=== PATIENT | female | born 1950 | race Two or more races ===

== ENCOUNTER → 2016-10-08 | Outpatient (CLI) | payer MEDICARE, OTHER ==
[2016-10-08 12:28] LABS: ABSOLUTE BASOPHILS # (AUTO) 0.1 10^3/uL (0.0-0.2); ABSOLUTE EOSINOPHILS # (AUTO) 0.1 10^3/uL (0.0-0.6); ABSOLUTE LYMPHOCYTES (AUTO) 1.2 10^3/uL (0.5-4.7); ABSOLUTE MONOCYTES (AUTO) 0.4 10^3/uL (0.1-1.4); ABSOLUTE NEUT (AUTO) 2.6 10^3/uL (1.7-8.2); BASOPHILS % (AUTO) 1.3 % (0-2); EOSINOPHILS % (AUTO) 1.2 % (0-6); HEMATOCRIT 37.1 % (36.0-47.0); HEMOGLOBIN 12.6 g/dL (12.0-15.5); HGB HCT DIFFERENCE 0.7; LYMPHOCYTES % (AUTO) 28.3 % (13-45); MEAN CORPUSCULAR HEMOGLOBIN 29.7 pg (27.0-33.4); MEAN CORPUSCULAR HGB CONC 33.9 g/dL (32.0-36.0); MEAN CORPUSCULAR VOLUME 88 fl (80-97); RED BLOOD COUNT 4.23 10^6/uL (3.72-5.28); RED CELL DISTRIBUTION WIDTH 13.2 % (11.5-14.0); SEGMENTED NEUTROPHILS % (AUTO) 60.2 % (42-78); WHITE BLOOD COUNT 4.2 10^3/uL (4.0-10.5)
[2016-10-08 12:59] LABS: ALANINE AMINOTRANSFERASE 39 U/L (9-52); ALBUMIN 4.3 g/dL (3.5-5.0); ALKALINE PHOSPHATASE 48 U/L (38-126); ANION GAP 7 (5-19); ASPARTATE AMINO TRANSFERASE 21 U/L (14-36); BILIRUBIN,TOTAL 0.6 mg/dL (0.2-1.3); BLOOD UREA NITROGEN 16 mg/dL (7-20); CALCIUM 9.5 mg/dL (8.4-10.2); CARBON DIOXIDE 29 mmol/L (22-30); CHLORIDE 102 mmol/L (98-107); CHOLESTEROL 285.89 mg/dL (0-200); CREATININE RESULT 0.68 mg/dL (0.52-1.25); Direct HDL 72 mg/dL (>40); GLUCOSE 85 mg/dL (75-110); POTASSIUM 4.4 mmol/L (3.6-5.0); SODIUM 137.8 mmol/L (137-145); TOTAL PROTEIN 6.8 g/dL (6.3-8.2); TRIGLYCERIDES 77 mg/dL (<150)
[2016-10-08 13:11] LABS: DIRECT LDL 170 mg/dL (<100)
== END ==
LOC: OD 11:07
PROVIDERS: ATTEND Internal Medicine
DX: E78.5 Hyperlipidemia, unspecified (principal); Z79.899 Other long term (current) drug therapy; R31.9 Hematuria, unspecified
CPT/HCPCS: 36415; 80053; 80061; 85025

== ENCOUNTER 2016-12-12 08:29 | Observation (INO) | payer MEDICARE, OTHER ==
--- NOTE | 2016-12-06 13:00 | HISTORY AND PHYSICAL E ---
History and Physical NAME: SHAWNA ALDRIDGE : 1950 AGE: 66Y ADMITTED: 12/12/2016 ROOM: HISTORY OF PRESENT ILLNESS: The patient presented with rectal bleeding. She is being admitted for colonoscopy. She had redundant difficulty colonoscopy and she will be done in the OR with anesthesia standby. Recent CT on 01/12/2013 showed benign hepatic cyst. There was calcification abdominal aorta, scoliosis, degenerative changes L5. There was no bowel wall lesion. She does have a very tiny umbilical hernia. REVIEW OF SYSTEMS: CARDIAC: High cholesterol. ENDOCRINE: Negative. GASTROINTESTINAL: History of polyps, history of abdominal pain, history of gastric polyps. ONCOLOGY/HEMATOLOGY: Negative. MUSCULOSKELETAL: The patient does have degenerative disk disease. FAMILY HISTORY: Her father had leukemia. Her mom had diabetes. SOCIAL HISTORY: The patient does not smoke, does not drink. PHYSICAL EXAMINATION: VITAL SIGNS: Blood pressure 90/60, pulse 80, respirations 18, temperature 98. HEAD, EYES, EARS, NOSE AND THROAT: Normal. ABDOMEN: Soft. NEUROLOGICAL: Exam negative. A previous colonoscopy showing small rectal polyp. The patient does have redundant colon. The patient's colonoscopy was difficult. She did have no evidence of malignancy. This was done in 2006. Another colonoscopy was done in 2012. Recent ultrasound 09/13/2016 showed several cysts throughout the right lobe of the liver, measuring 23 mm. Gallbladder, liver, pancreas otherwise normal. CONCLUSIONS: Rectal bleeding. PLAN: Colon exam. The patient is to be done in the OR with anesthesia standby. Admit on 12/12/2016. DICTATING PHYSICIAN: KYLE SUERO M.D. [id number] [id number] Y#: [id number] ID: [id number] JOB#: [id number] ACCT: [id number] cc:MD MARCELINO , KYLE JOHNSON M.D. >
[~2016-12-12 08:29] MED LIST: GLUCAGON,HUMAN RECOMB 1 MG INJ ONE; LIDOCAINE 0.5% INJ-PF (5 MG/ML) 50 ML SDV SUBCUT PRN; LIDOCAINE 2% JELLY 30 ML TUBE ONE; RINGERS SOLUTION,LACTATED 1,000 ML IV PRN
[2016-12-12 09:04] LABS: HEMATOCRIT 39.7 % (36.0-47.0); HEMOGLOBIN 13.7 g/dL (12.0-15.5); HGB HCT DIFFERENCE 1.4; MEAN CORPUSCULAR HEMOGLOBIN 30.2 pg (27.0-33.4); MEAN CORPUSCULAR HGB CONC 34.5 g/dL (32.0-36.0); MEAN CORPUSCULAR VOLUME 87 fl (80-97); RED BLOOD COUNT 4.54 10^6/uL (3.72-5.28); RED CELL DISTRIBUTION WIDTH 12.8 % (11.5-14.0); WHITE BLOOD COUNT 3.8 10^3/uL (4.0-10.5)
[2016-12-12 09:27] LABS: ANION GAP 11 (5-19); BLOOD UREA NITROGEN 12 mg/dL (7-20); CARBON DIOXIDE 29 mmol/L (22-30); CHLORIDE 103 mmol/L (98-107); GLUCOSE 122 mg/dL (75-110); SODIUM 142.8 mmol/L (137-145)
[2016-12-12] MEDS ORDERED: ONDANSETRON HCL INJ/PF 4 MG/2 ML SDV ONE (15:16)
[2016-12-12] MEDS ORDERED: DEXMEDETOMIDINE INJ 80 MCG/20 ML VIAL IV ONE (15:16)
[2016-12-12] MEDS ORDERED: PROPOFOL INJ 200 MG/20 ML VIAL IV ONE (15:16)
[2016-12-12] MEDS ORDERED: LIDOCAINE 2% INJ-PF (20 MG/ML) 10 ML AMPUL ONE (15:16)
[2016-12-12] MEDS ORDERED: GLUCAGON,HUMAN RECOMB 1 MG INJ ONE (16:25)
[2016-12-12] MEDS ORDERED: ONDANSETRON HCL INJ/PF 4 MG/2 ML SDV IV PRN (16:42)
[2016-12-12] MEDS ORDERED: DIPHENHYDRAMINE HCL 50 MG/ML VIAL IV PRN (16:42)
[2016-12-12] MEDS ORDERED: PROMETHAZINE HCL INJ 25 MG/1 ML VIAL IV PRN ×2 (16:42)
[2016-12-12] MEDS ORDERED: RINGERS SOLUTION,LACTATED 500 ML IV ONE (18:00)
[2016-12-12 19:13] LABS: HEMATOCRIT 34.5 % (36.0-47.0); HEMOGLOBIN 11.8 g/dL (12.0-15.5); HGB HCT DIFFERENCE 0.9; MEAN CORPUSCULAR HEMOGLOBIN 30.1 pg (27.0-33.4); MEAN CORPUSCULAR HGB CONC 34.2 g/dL (32.0-36.0); MEAN CORPUSCULAR VOLUME 88 fl (80-97); RED BLOOD COUNT 3.93 10^6/uL (3.72-5.28); WHITE BLOOD COUNT 5.3 10^3/uL (4.0-10.5)
[2016-12-12] MEDS ORDERED: DEXTROSE 5%-1/2 NORMAL SALINE 1,000 ML IV PRN (21:02)
[2016-12-13 07:18] LABS: HEMATOCRIT 33.8 % (36.0-47.0); HEMOGLOBIN 11.6 g/dL (12.0-15.5); MEAN CORPUSCULAR HGB CONC 34.4 g/dL (32.0-36.0); MEAN CORPUSCULAR VOLUME 87 fl (80-97); RED BLOOD COUNT 3.88 10^6/uL (3.72-5.28); WHITE BLOOD COUNT 3.7 10^3/uL (4.0-10.5)
[2016-12-13 08:48] VITALS: BP 104/51
--- NOTE | 2016-12-13 14:46 | DISCHARGE SUMMARY E ---
Discharge Summary NAME: SHAWNA ALDRIDGE : 1950 AGE: 66Y ADMITTED: 12/12/2016 DISCHARGED: 12/12/2016 HOSPITAL COURSE: Patient is 66. Presented with rectal bleeding. She underwent colon today in the OR with anesthesia standby. Patient has redundant colon. I did not see any polyps or malignancy. She does have mild external hemorrhoids. DISCHARGE PLAN: Keep the patient on full liquid diet. Baseline CBC. Hold aspirin and nonsteroidal. Patient to see us in the office in the next few days. Consider age and followup colon in 10 years. Continue the rest of her medications, she is no medication at the present time. She is essentially a healthy young female. Her lab studies. She does have high cholesterol at 285. Repeat CBC on admission: White count 4, hemoglobin 12, hematocrit 37. DIET: Full liquid. ACTIVITIES: Avoid exertion and heavy lifting. Followup office visit in the next few days. DICTATING PHYSICIAN: KYLE SUERO M.D. [id number] [facility]#: [id number] ID: [id number] JOB#: [id number] ACCT: [id number] cc:KYLE SUERO M.D. >
--- NOTE | 2016-12-13 14:46 | OPERATIVE REPORT E ---
Operative Report NAME: SHAWNA ALDRIDGE : 1950 AGE: 66Y DATE OF SURGERY: 12/12/2016 ROOM: 212 PREOPERATIVE DIAGNOSIS: Rectal bleeding. POSTOPERATIVE DIAGNOSES: 1. External hemorrhoids. 2. Redundant colon. PROCEDURE: Colonoscopy. SURGEON: KYLE SUERO M.D. ANESTHESIA: Done in the OR with anesthesia standby. TISSUE REMOVED OR ALTERED: None. DESCRIPTION OF PROCEDURE: Rectal exam shows mild external hemorrhoids and lax anal sphincter. Sigmoid descending colon normal. Transverse colon redundant, normal. Ascending colon normal. Cecum normal. Scope gradually withdrawn from cecum and ascending. There was mild ecchymosis in the mid transverse colon secondary to looping of the scope and there is another ecchymosis in the sigmoid colon. Mucosa looks intact. No bleeding and no laceration, just ecchymosis in the sigmoid colon and mid transverse colon. There were no polyps. I did not see diverticulosis on today's exam. Mild external hemorrhoids. DISCHARGE PLAN: We will do baseline CBC. Maintain the patient on full liquids. Consider age and followup colonoscopy after 10 years. DICTATING PHYSICIAN: KYLE SUERO M.D. [id number] [id number] PHY#: [id number] ID: [id number] JOB#: [id number] ACCT: [id number] cc:KYLE SUERO M.D. >
--- NOTE | 2016-12-18 13:25 | DISCHARGE SUMMARY E ---
Discharge Summary NAME: SHAWNA ALDRIDGE : 1950 AGE: 66Y ADMITTED: 12/12/2016 DISCHARGED: 12/13/2016 HISTORY: The patient is known to me, a 66-year-old female who underwent outpatient colonoscopy on 12/12/2016. In the OR her colonoscopy was difficult. There was some mild ecchymosis in the sigmoid colon and the patient did have slight hypotension and blood pressure systolic in the 95. She was slightly hypotensive. Because of the difficult colonoscopy and anemia, we elected to keep her overnight for observation and we did serial hemoglobin and crit on her. On the morning of 12/13/2016, the patient's blood pressure was much better after overnight hydration. Her hemoglobin stabilized. She is being discharged on a full liquid diet, avoid heavy lifting, avoid aspirin and nonsteroidals. CONCLUSIONS: Diverticulosis. No evidence of polyps. No evidence of bleeding. Mild external hemorrhoids. PLAN: The patient is to see us in the office in the next few days. She was admitted from the outpatient OR on 12/12/2016. She was kept in the second floor medical bed and discharged in the morning of 12/13/2016 to continue full liquid diet and to see us in the office in the next few days. FINAL DIAGNOSES: 1. Diverticulosis. 2. External hemorrhoids. 3. Mild anemia. DICTATING PHYSICIAN: KYLE SUERO M.D. 1209M [id number] PHY#: [id number] ID: [id number] JOB#: [id number] ACCT: [id number] cc:KYLE SUERO M.D. >
== END 2016-12-13 08:35 | disposition home or self-care (01) ==
LOC: OROUT 08:29 → 2N 18:54 → OROUT 19:20
PROVIDERS: ADMIT Specialist; ATTEND Specialist
PROC: 0DJD8ZZ Inspection of Lower Intestinal Tract, Via Natural or Artificial Opening Endoscopic (ICD-10-PCS; principal; 2016-12-12 16:00)
DX: K62.5 Hemorrhage of anus and rectum (principal); K64.4 Residual hemorrhoidal skin tags; Q43.8 Other specified congenital malformations of intestine; K42.9 Umbilical hernia without obstruction or gangrene; E78.00 Pure hypercholesterolemia, unspecified; Z86.010 Personal history of colon polyps; Z80.6 Family history of leukemia
CPT/HCPCS: 45378; 36415 ×2; 85027 ×2; 80048; G0378 ×2; G0379; J1610; J2405; J2704; J3490 ×2; 810

== ENCOUNTER → 2017-12-24 | Outpatient (CLI) | payer MEDICARE, OTHER ==
[2017-12-24 09:53] LABS: ABSOLUTE BASOPHILS # (AUTO) 0.1 10^3/uL (0.0-0.2); ABSOLUTE EOSINOPHILS # (AUTO) 0.1 10^3/uL (0.0-0.6); ABSOLUTE LYMPHOCYTES (AUTO) 0.9 10^3/uL (0.5-4.7); ABSOLUTE MONOCYTES (AUTO) 0.3 10^3/uL (0.1-1.4); ABSOLUTE NEUT (AUTO) 2.4 10^3/uL (1.7-8.2); EOSINOPHILS % (AUTO) 1.6 % (0-6); HEMATOCRIT 38.1 % (36.0-47.0); HEMOGLOBIN 13.1 g/dL (12.0-15.5); MEAN CORPUSCULAR HEMOGLOBIN 29.7 pg (27.0-33.4); MEAN CORPUSCULAR HGB CONC 34.2 g/dL (32.0-36.0); MEAN CORPUSCULAR VOLUME 87 fl (80-97); MONOCYTES % (AUTO) 7.8 % (3-13); PLATELET COUNT 200 10^3/uL (150-450); RED CELL DISTRIBUTION WIDTH 13.2 % (11.5-14.0); SEGMENTED NEUTROPHILS % (AUTO) 63.6 % (42-78); TOTAL CELLS COUNTED % (AUTO) 100 %; WHITE BLOOD COUNT 3.7 10^3/uL (4.0-10.5)
[2017-12-24 10:10] LABS: ALANINE AMINOTRANSFERASE 25 U/L (9-52); ALBUMIN 4.1 g/dL (3.5-5.0); ALKALINE PHOSPHATASE 46 U/L (38-126); ANION GAP 8 (5-19); ASPARTATE AMINO TRANSFERASE 22 U/L (14-36); BILIRUBIN,DIRECT 0.1 mg/dL (0.0-0.4); BILIRUBIN,TOTAL 0.3 mg/dL (0.2-1.3); BLOOD UREA NITROGEN 17 mg/dL (7-20); CALCIUM 9.7 mg/dL (8.4-10.2); CARBON DIOXIDE 31 mmol/L (22-30); CHLORIDE 104 mmol/L (98-107); CHOLESTEROL 293.64 mg/dL (0-200); GLUCOSE 89 mg/dL (75-110); POTASSIUM 4.6 mmol/L (3.6-5.0); SODIUM 143.2 mmol/L (137-145); TOTAL PROTEIN 6.9 g/dL (6.3-8.2); TRIGLYCERIDES 77 mg/dL (<150)
[2017-12-24 10:21] LABS: DIRECT LDL 173 mg/dL (<100)
== END ==
LOC: OD 09:18
PROVIDERS: ATTEND Internal Medicine
DX: E78.00 Pure hypercholesterolemia, unspecified (principal); Z79.899 Other long term (current) drug therapy
CPT/HCPCS: 36415; 80053; 80061; 85025

== ENCOUNTER → 2019-01-21 | Outpatient (CLI) | payer MEDICARE, OTHER ==
[2019-01-21 11:26] LABS: ABSOLUTE BASOPHILS # (AUTO) 0.1 10^3/uL (0.0-0.2); ABSOLUTE EOSINOPHILS # (AUTO) 0.1 10^3/uL (0.0-0.6); ABSOLUTE MONOCYTES (AUTO) 0.3 10^3/uL (0.1-1.4); ABSOLUTE NEUT (AUTO) 2.4 10^3/uL (1.7-8.2); BASOPHILS % (AUTO) 1.7 % (0-2); EOSINOPHILS % (AUTO) 1.7 % (0-6); HEMATOCRIT 37.1 % (36.0-47.0); HEMOGLOBIN 12.6 g/dL (12.0-15.5); LYMPHOCYTES % (AUTO) 26.1 % (13-45); MEAN CORPUSCULAR HEMOGLOBIN 29.5 pg (27.0-33.4); MEAN CORPUSCULAR HGB CONC 33.9 g/dL (32.0-36.0); MEAN CORPUSCULAR VOLUME 87 fl (80-97); MONOCYTES % (AUTO) 8.6 % (3-13); PLATELET COUNT 185 10^3/uL (150-450); RED BLOOD COUNT 4.27 10^6/uL (3.72-5.28); RED CELL DISTRIBUTION WIDTH 13.1 % (11.5-14.0); SEGMENTED NEUTROPHILS % (AUTO) 61.9 % (42-78); TOTAL CELLS COUNTED % (AUTO) 100 %; WHITE BLOOD COUNT 3.9 10^3/uL (4.0-10.5)
[2019-01-21 11:51] LABS: ALANINE AMINOTRANSFERASE 24 U/L (9-52); ALBUMIN 4.2 g/dL (3.5-5.0); ALKALINE PHOSPHATASE 42 U/L (38-126); ANION GAP 8 (5-19); ASPARTATE AMINO TRANSFERASE 22 U/L (14-36); BILIRUBIN,DIRECT 0.1 mg/dL (0.0-0.4); BILIRUBIN,TOTAL 0.6 mg/dL (0.2-1.3); BLOOD UREA NITROGEN 15 mg/dL (7-20); CALCIUM 9.4 mg/dL (8.4-10.2); CARBON DIOXIDE 27 mmol/L (22-30); CHLORIDE 104 mmol/L (98-107); CHOLESTEROL 307.56 mg/dL (0-200); GLUCOSE 83 mg/dL (75-110); POTASSIUM 4.4 mmol/L (3.6-5.0); SODIUM 139.2 mmol/L (137-145); TRIGLYCERIDES 89 mg/dL (<150)
[2019-01-21 12:02] LABS: DIRECT LDL 171 mg/dL (<100)
== END ==
LOC: OD 10:43
PROVIDERS: ATTEND Internal Medicine
DX: E78.00 Pure hypercholesterolemia, unspecified (principal); Z79.899 Other long term (current) drug therapy; N39.0 Urinary tract infection, site not specified
CPT/HCPCS: 36415; 80053; 80061; 85025

== ENCOUNTER → 2019-08-31 | Outpatient (CLI) | payer MEDICARE, OTHER ==
--- NOTE | 2019-08-31 14:26 | XCELERA REPORT ---
[address] [address] Lower Extremity Venous Evaluation Procedure: A bilateral duplex scan of the lower extremity veins was performed. The evaluation included responses to compression and other maneuvers with patient in the supine and standing positions to assess venous insufficiency. Right Sided Venous Evaluation Deep venous system evaluation shows patent veins with no significant reflux identified. Sapheno Femoral junction: no reflux. Greater Saphenous vein, Proximal thigh: reflux: no reflux. Greater Saphenous vein, mid thigh: reflux:no reflux. Greater Saphenous vein, Distal thigh: reflux:no reflux. Greater Saphenous vein, Proximal below knee: reflux: none Greater Saphenous vein, Mid below knee: reflux: none. Greater Saphenous vein, Distal below knee: reflux: no reflux. No significant Perforators identified. Left Sided Venous Evaluation Deep venous system evaluation shows patent veins with no significant reflux identified. Sapheno Femoral junction: no reflux. Greater Saphenous vein, Proximal thigh: reflux: no reflux. Greater Saphenous vein, mid thigh: reflux:no reflux. Greater Saphenous vein, Distal thigh: reflux:no reflux. Greater Saphenous vein, Proximal below knee: reflux: none Greater Saphenous vein, Mid below knee: reflux: none. Greater Saphenous vein, Distal below knee: reflux: no reflux. No significant Perforators identified. Interpretation Summary No duplex evidence of DVT or obstruction in the bilateral lower extremities. No significant deep or superficial reflux identified. Name: SHAWNA ALDRIDGE Age: 69 yrs Gender: Female : 1950 Patient Status: Outpatient Patient Location: Study Date: 08/31/2019 11:19 AM Reason For Study: LEG PAIN Ordering Physician: EAMON BORDEN Performed By: Froylan Domínguez : EAMON BORDEN > Eamon Borden
== END ==
LOC: SP 11:09
PROVIDERS: ATTEND Surgery
DX: M79.662 Pain in left lower leg (principal); M79.661 Pain in right lower leg
CPT/HCPCS: 93970

== ENCOUNTER → 2019-10-08 | Outpatient (CLI) | payer MEDICARE, OTHER ==
[2019-10-08 10:43] LABS: ABSOLUTE BASOPHILS # (AUTO) 0.1 10^3/uL (0.0-0.2); ABSOLUTE LYMPHOCYTES (AUTO) 0.9 10^3/uL (0.5-4.7); ABSOLUTE MONOCYTES (AUTO) 0.3 10^3/uL (0.1-1.4); ABSOLUTE NEUT (AUTO) 3.1 10^3/uL (1.7-8.2); BASOPHILS % (AUTO) 1.2 % (0-2); EOSINOPHILS % (AUTO) 0.9 % (0-6); HEMATOCRIT 37.2 % (36.0-47.0); HEMOGLOBIN 12.9 g/dL (12.0-15.5); MEAN CORPUSCULAR HEMOGLOBIN 29.9 pg (27.0-33.4); MEAN CORPUSCULAR HGB CONC 34.7 g/dL (32.0-36.0); MEAN CORPUSCULAR VOLUME 86 fl (80-97); MONOCYTES % (AUTO) 7.4 % (3-13); PLATELET COUNT 199 10^3/uL (150-450); RED BLOOD COUNT 4.32 10^6/uL (3.72-5.28); RED CELL DISTRIBUTION WIDTH 12.8 % (11.5-14.0); SEGMENTED NEUTROPHILS % (AUTO) 69.5 % (42-78); TOTAL CELLS COUNTED % (AUTO) 100 %; WHITE BLOOD COUNT 4.4 10^3/uL (4.0-10.5)
[2019-10-08 11:08] LABS: ALBUMIN 4.2 g/dL (3.5-5.0); ALKALINE PHOSPHATASE 45 U/L (38-126); ANION GAP 9 (5-19); ASPARTATE AMINO TRANSFERASE 25 U/L (14-36); BILIRUBIN,DIRECT 0.1 mg/dL (0.0-0.4); BILIRUBIN,TOTAL 0.6 mg/dL (0.2-1.3); BLOOD UREA NITROGEN 18 mg/dL (7-20); CALCIUM 9.5 mg/dL (8.4-10.2); CARBON DIOXIDE 30 mmol/L (22-30); CHLORIDE 101 mmol/L (98-107); CHOLESTEROL 193.94 mg/dL (0-200); GLUCOSE 85 mg/dL (75-110); POTASSIUM 4.1 mmol/L (3.6-5.0); TOTAL PROTEIN 7.2 g/dL (6.3-8.2); TRIGLYCERIDES 82 mg/dL (<150)
[2019-10-08 11:18] LABS: FREE T4 (FREE THYROXINE) 0.9 ng/dL (0.78-2.19)
[2019-10-08 11:19] LABS: DIRECT LDL 106 mg/dL (<100)
[2019-10-08 11:32] LABS: THYROID STIMULATING HORMONE 1.46 uIU/mL (0.47-4.68)
== END ==
LOC: OD 10:02
PROVIDERS: ATTEND Internal Medicine
DX: E78.00 Pure hypercholesterolemia, unspecified (principal); R53.83 Other fatigue; Z79.899 Other long term (current) drug therapy
CPT/HCPCS: 36415; 80053; 80061; 84439; 84443; 85025